=== PATIENT | female | born 1985 | race Caucasian/White ===

== ENCOUNTER 2023-04-11 15:09 | Emergency (ER) | payer OTHER | END 2023-04-11 15:52 | disposition home or self-care (01) | LOC: VM.ED 15:09 | DX: M62.830 Muscle spasm of back (principal) | CPT/HCPCS: 99283 ==

== ENCOUNTER 2025-05-01 17:27 | Emergency (ER) | payer SELFPAY ==
[2025-05-01 18:03] LABS: BASOPHILS ABSOLUTE AUTO 0.1 x10^3/uL (0.0-0.2); BASOPHILS PERCENT AUTO 0.6 % (0.2-1.2); EOSINOPHILS ABSOLUTE AUTO 0.2 x10^3/uL (0.0-0.5); EOSINOPHILS PERCENT AUTO 2.5 % (0.0-4.0); HEMATOCRIT 34.2 % (33.0-47.0); HEMOGLOBIN 10.8 g/dL (12.0-16.0); IMMATURE GRAN ABSOLUTE AUTO 0.01 x10^3/uL (0.00-0.07); LYMPHOCYTES ABSOLUTE AUTO 1.7 x10^3/uL (1.0-4.8); MEAN CORPUSCULAR HEMOGLOBIN 25.3 pg (26.0-32.0); MEAN CORPUSCULAR HGB CONC 31.6 g/dL (32.0-36.0); MEAN CORPUSCULAR VOLUME 80.1 fL (78.0-93.0); MONOCYTES ABSOLUTE AUTO 0.5 x10^3/uL (0.0-0.8); MONOCYTES PERCENT AUTO 5.7 % (2.0-11.0); NEUTROPHILS ABSOLUTE AUTO 5.8 x10^3/uL (1.8-7.7); NEUTROPHILS PERCENT AUTO 70.1 % (50.0-80.0); PLATELET COUNT,PLT 293 x10^3/uL (130-400); RED BLOOD CELL COUNT 4.27 x10^6/uL (4.00-5.50); WHITE BLOOD CELL COUNT,WBC 8.3 x10^3/uL (4.0-10.0)
[2025-05-01 18:22] LABS: A/G RATIO 1.33; ALANINE AMINOTRANSFERASE,ALT 28 U/L (14-59); ALKALINE PHOSPHATASE 82 U/L (46-116); ASPARTATE AMNIOTRANSFERASE,AST 26 U/L (15-37); BILIRUBIN TOTAL 0.3 mg/dL (0.2-1.0); BLOOD UREA NITROGEN,BUN 8 mg/dL (7-18); CALCIUM 8.8 mg/dL (8.5-10.1); CARBON DIOXIDE,CO2 29 mmol/L (21-32); CHLORIDE,CL 104 mmol/L (98-107); CREATININE 0.9 mg/dL (0.55-1.02); GLUCOSE RANDOM 110 mg/dL (70-99); POTASSIUM,K 3.6 mmol/L (3.5-5.1); SODIUM,NA 142 mmol/L (136-145)
[2025-05-01 18:23] LABS: ANION GAP 12.6 mmol/L (5-15); ESTIMATED GFR 82 mL/min (>=60)
== END 2025-05-01 18:39 | disposition home or self-care (01) ==
LOC: VM.ED 17:27
DX: N93.8 Other specified abnormal uterine and vaginal bleeding (principal); F17.200 Nicotine dependence, unspecified, uncomplicated; Z79.899 Other long term (current) drug therapy
CPT/HCPCS: 36415; 80053; 85025; 99283; 99284